=== PATIENT | female | born 1970 | race Caucasian/White ===

== ENCOUNTER 2016-11-27 05:51 | Inpatient (IN) | payer BC ==
[~2016-11-27] VITALS: Ht 165.1 cm; Wt 77.1 kg
[2016-11-27] VITALS (15 sets, daily range): BP systolic 95–114; BP diastolic 54–68
[2016-11-27] MEDS ORDERED: PROZAC10 MG ORAL (06:48)
[2016-11-27] MEDS ORDERED: OMEGA-31000 M1 PO (06:50)
[2016-11-27] MEDS ORDERED: [UNRECOGNIZED DRUG - OTHER] PO (06:50)
[2016-11-27] MEDS ORDERED: Ropivacaine 5mg/ml Vial 20ml INJ ONE (06:58)
[2016-11-27] MEDS ORDERED: Duramorph PF 5mg/10ml amp ONE (06:58)
[2016-11-27] MEDS ORDERED: Zemuron 50mg/5ml Inj IV ONE (07:30)
[2016-11-27] MEDS ORDERED: Midazolam 2mg/2ml Inj ONE (07:30)
[2016-11-27] MEDS ORDERED: Sterile Water Irrig 1000ml IRRIG ONE (07:30)
[2016-11-27] MEDS ORDERED: Neostigmine 1mg/ml 10ml Inj ONE (07:30)
[2016-11-27] MEDS ORDERED: NS 55ml IV ONE (07:30)
[2016-11-27] MEDS ORDERED: Glycopyrrolate 0.2mg/ml 1ml Vial ONE (07:30)
[2016-11-27] MEDS ORDERED: Propofol 10mg/ml 100ml btl IV ONE (07:30)
[2016-11-27] MEDS ORDERED: Propofol 10mg/ml 20ml IV ONE (07:30)
[2016-11-27] MEDS ORDERED: fentaNYL 100 mcg/2 mL IV ONE (07:30)
[2016-11-27] MEDS ORDERED: Ketorolac 30mg Inj ONE (07:30)
[2016-11-27] MEDS ORDERED: LR 1000ml ONE (07:30)
[2016-11-27] MEDS ORDERED: NS Irrig 1000ml ONE (07:30)
[2016-11-27] MEDS ORDERED: Succinylcholine 20mg/ml 10ml vial ONE (07:30)
[2016-11-27] MEDS ORDERED: Clindamycin 600mg 50 ML IV ONE (07:33)
--- NOTE | 2016-11-27 07:45 | Pre-Procedure Note/Attestation ---
Pre-Procedure Note/Attestation Complete Prior to Procedure Planned Procedure: bilateral Procedure Narrative: Supracervical abdominal hysterectomy, Unilateral salpingectomy Indications for Procedure Pre-Operative Diagnosis: Large Symptomatic Uterine Fibroids Attestation I attest that I discussed the nature of the procedure; its benefits; risks and complications; and alternatives (and the risks and benefits of such alternatives ), prior to the procedure, with the patient (or the patient's legal airline security representative). I attest that, if there was a reasonable possibility of needing a blood transfusion, the patient (or the patient's legal airline security representative) was given the [facility] standardized written summary, pursuant to the Todd Wendy Blood Safety Act ([place] Health and Safety Code # 1645, as amended). I attest that I re-evaluated the patient just prior to the surgery and that there has been no change in the patient's H&P, except as documented below:NONE TRISH GEIGER Nov 27, 2016 07:45
[2016-11-27] MEDS ORDERED: LR 1000ml 1,000 ML IVLG SCH (08:41)
--- NOTE | 2016-11-27 08:41 | Anethesia Preoperative Eval ---
Anesthesia Pre-op PMH/ROS General Date of Evaluation: Nov 27, 2016 Time of Evaluation: 07:20 Anesthesiologist: Leticia ASA Score: ASA 2 Mallampati Score Class I : Soft palate, uvula, fauces, pillars visible Class II: Soft palate, uvula, fauces visible Class III: Soft palate, base of uvula visible Class IV: Only hard plate visible Mallampati Classification: Class II Surgeon: Martha Diagnosis: Symptomatic uterine fibroids Surgical Procedure: Supracervical hysterectomy Anesthesia History: none Family History: no anesthesia problems Allergies: Coded Allergies: PENICILLINS (Verified Allergy, Unknown, 11/27/16) SWELLING WHEN GIVEN INJECTION Past Medical History Cardiovascular: Denies: CAD, HTN, ND, arrhythmia, other, valve dz Pulmonary: Reports: MARICRUZ, Denies: COPD, asthma, other Gastrointestinal/Genitourinary: Reports: GERD, Denies: CRI, ESRD, other Neurologic/Psychiatric: Denies: CVA, TIA, dementia, depression/anxiety, other Endocrine: Denies: DM, hypothyroidism, other, steroids HEENT: Denies: RED DEVIL (L), RED DEVIL (R), cataract (L), cataract (R), glaucoma, other Hematology/Immune: Reports: anemia - mild, Denies: DVT, bleeding disorder, other Musculoskeletal/Integumentary: Denies: DDD, DJD, OA, RA, edema, other Other: other - overweight PMH Narrative: as above PSxH Narrative: x2 Anesthesia Pre-op Phys. Exam Physician Exam Last Vital Signs Date Time Temp Pulse Resp B/P Pulse Ox O2 Delivery O2 Flow Rate FiO2 11/27/16 07:10 98.1 67 20 105/56 97 Room Air Constitutional: NAD Neurologic: CN 2-12 intact Cardiovascular: RRR, no M/R/G Respiratory: CTA Gastrointestinal: S/NT/ND Airway Exam Mallampati Score: Class II MO: full Neck: flexible ROM: full Teeth: intact Dentures: no lower, no upper Anesthesia Pre-op A/P Labs see chart Urine Test Test 11/27/16 06:10 Urine HCG, Qualitative Negative Studies Pre-op Studies: EKG - NSR Risk Assessment & Plan Assessment: ASA 2 Plan: GA with ETT Intrathecal Duramorph injection Status Change Before Surgery: No Pre-Antibiotics Drug: Clindamycin 600 mg. Given Within 1 Hr of Incision: Yes Time Given: 08:06 MARS PARKS M.D. Nov 27, 2016 08:41
[2016-11-27] MEDS ORDERED: DiphenhydrAMINE 50mg/ml Inj IVP PRN ×2 (08:45→10:45)
[2016-11-27] MEDS ORDERED: Metoclopramide 10mg/2ml Inj IVP PRN (08:45)
[2016-11-27] MEDS ORDERED: Hydromorphone 0.5mg/0.5ml inj IVP PRN (08:45)
[2016-11-27] MEDS ORDERED: Meperidine 25mg/ml Inj IV PRN (08:45)
[2016-11-27] MEDS ORDERED: Midazolam 2mg/2ml Inj IVP PRN (08:45)
[2016-11-27] MEDS ORDERED: Ketorolac 30mg Inj IV PRN (08:45)
[2016-11-27] MEDS ORDERED: Surgicel 4in x 8in TOPIC ONE (09:03)
--- NOTE | 2016-11-27 10:28 | Brief Operative Note ---
Immediate Post Operative Note Operative Note Pre-op Diagnosis: Large Symptomatic Uterine Fibroids Procedure: Supracervical Hysterectomy, Left Salpingectomy Post-op Diagnosis: Large Uterine Fibroids, Possible extensive adenomyosis Post-op Diagnosis: same as pre-op plus Surgeon: Trish Geiger MD Manager Agency: Ilda Botello MD Anesthesiologist: Nisreen Kelly MD Anesthesia: general Specimen: yes - Uterus, Uterine fibroid, Left Tube Complications: none Condition: stable Fluids: LR @ 125 ml/ hr Estimated Blood Loss: volume Drains: none Implant(s) used?: No TRISH GEIGER Nov 27, 2016 10:28
--- NOTE | 2016-11-27 10:33 | Immediate Post-Op Evaluation ---
Immediate Post-Op Evalulation Immediate Post-Op Evalulation Procedure: Supracervical hysterectomy Date of Evaluation: Nov 27, 2016 Time of Evaluation: 10:32 IV Fluids: 1600 Blood Products: none Estimated Blood Loss: 100 Urinary Output: 150 Blood Pressure Systolic: 109 Blood Pressure Diastolic: 62 Pulse Rate: 92 Respiratory Rate: 20 O2 Sat by Pulse Oximetry: 99 Temperature (Fahrenheit): 97.5 Pain Score (1-10): 2 Nausea: No Vomiting: No Complications none Patient Status: reacts, patent, extubated, none Hydration Status: adequate MARS PARKS M.D. Nov 27, 2016 10:33
[2016-11-27] MEDS ORDERED: Zolpidem 5mg tab ORAL PRN (10:45)
[2016-11-27] MEDS ORDERED: HYDROmorphone 1mg/ml Carpuject IVP PRN (10:45)
--- NOTE | 2016-11-27 13:52 | 48 Hour Post Anesthesia Eval ---
Post Anesthesia Evaluation Procedure: Supracervical hysterectomy Date of Evaluation: Nov 27, 2016 Time of Evaluation: 13:50 Blood Pressure Systolic: 95 0: 54 Pulse Rate: 84 Respiratory Rate: 20 Temperature (Fahrenheit): 97.6 O2 Sat by Pulse Oximetry: 94 Airway: patent Nausea: No Vomiting: No Pain Intensity: 3 Hydration Status: adequate Cardiopulmonary Status: Stable Mental Status/LOC: patient returned to baseline Follow-up Care/Observations: 0 Post-Anesthesia Complications: 0 Follow-up care needed: N/A Chapincito Barksdale MD Nov 27, 2016 13:51
[2016-11-27] MEDS: D5 1/2NS w/KCl 20mEq 1,000 ML IV SCH ×2 (13:56→20:57)
[2016-11-27] MEDS: Norco 5mg/325mg tab ORAL PRN (19:50)
--- NOTE | 2016-11-27 23:28 | Operative Note - Dictated ---
DATE OF OPERATION: 11/27/2016 PREOPERATIVE DIAGNOSIS: Large uterine fibroid with very heavy uterine bleeding. POSTOPERATIVE DIAGNOSIS: Large uterine fibroid with very heavy uterine bleeding plus probable extensive adenomyosis. SURGEON: Ramy Thomas M.D. COAT CHECK ATTENDANT: Ilda Botello M.D. PROCEDURE PERFORMED: Supracervical hysterectomy and left salpingectomy. ANESTHESIA: General endotracheal. ANESTHESIOLOGIST: Hunter Kelly M.D. PROCEDURE IN DETAIL: After all the appropriate consents were signed. The patient was brought to the operating room, placed on the table in supine position. General endotracheal anesthesia was induced without complication. The patient was then placed in a dorsal lithotomy position and a Skelton catheter was placed and then the patient was placed back in the supine position. The patient was draped in the usual fashion and the procedure began with Pfannenstiel incision, which was made in the area of the previous section. The procedure then continued with going through the fascia and the fascial incision was extended bilaterally. The rectus muscle was then reflected away from the fascia both inferiorly and superiorly. The muscle was spotted in the midline and the peritoneum was entered sharply. At this time, the uterus was visualized. The uterus itself appeared to be very soft, but extremely broad and large. There appeared to be a 3 cm subserosal fibroid on the right fundal area. All the other fibroid appeared to be within the uterus, however, the main bulk of the uterus was due to very soft probably adenomyotic tissue. The procedure was then continued with externalizing the uterus through the incision as it was very difficult to view the round ligament due to the width of the uterus. Once the uterus was externalized, the bladder flap was developed because of the previous bladder adhesion, which was tacked up to the top of the uterus. The round ligaments were now identified. They were clamped, cut, and suture ligated bilaterally. The bladder flap was continued to be developed bilaterally. The right uterine vessels were now identified and after some skeletonization the vessels were clamped, cut and suture ligated. The same was performed on the left side after the infundibulopelvic ligament was clamped, cut, and suture ligated. At this time, the attention was turned to the left ovary and tube. The tube was elevated and removed and completely excised away from the ovary. The procedure continued with clamping and cutting along the cervix to get additional uterine and cervical vasculature. Once this was completed, the uterus was completely removed away from the cervix and brought off the field. The cervix was fully visualized and the cervical canal was excised using a coring technique. At this time, the cervical stump was oversewn with a running 0 Vicryl suture. The pelvis was now evaluated for hemostasis. There were multiple bleeders along the muscle layer and placed along the pedicles bilaterally. A complete hemostasis was achieved and the pelvis was irrigated with normal saline. Once again, the hemostasis was evaluated after the irrigation and it was found to be complete. The incision was now closed by closing the peritoneum first followed by the rectus muscle. The fascia was closed using 0 Vicryl suture bilaterally. The subcutaneous tissue was closed using plain suture and in a running fashion and the skin was closed using stainless steel maynor. Ramy Thomas M.D. DR: RAMOS JOB#: [id number] CC:
[2016-11-28] VITALS: BP 100/47
[2016-11-28] MEDS: Norco 5mg/325mg tab ORAL PRN ×3 (01:52→12:43)
[2016-11-28 04:31] VITALS: BP 98/59
[2016-11-28] MEDS: D5 1/2NS w/KCl 20mEq 1,000 ML IV SCH ×3 (05:46→22:24)
[2016-11-28 07:49] LABS: EOSINOPHILS % (AUTO) 0.7 % (0.0-3.0); MEAN CORPUSCULAR HEMOGLOBIN 28.6 PG (27.0-31.0); MEAN CORPUSCULAR HGB CONC 32.6 G/DL (32.0-36.0); MEAN CORPUSCULAR VOLUME 88 FL (80-99); MEAN PLATELET VOLUME 8.5 FL (6.5-10.1); MONOCYTES % (AUTO) 9.6 % (1.0-10.0); NEUTROPHILS % (AUTO) 55.8 % (45.0-75.0); PLATELET COUNT 218 K/UL (150-450); RED BLOOD COUNT 4.28 M/UL (4.20-5.40); RED CELL DISTRIBUTION WIDTH 13.4 % (11.6-14.8)
[2016-11-28 08:00] VITALS: BP 97/57
[2016-11-28 08:18] LABS: ANION GAP 12 (5-15); CARBON DIOXIDE 26 mEQ/L (20-30); CHLORIDE 101 mEQ/L (98-107); CREATININE 0.6 mg/dL (0.5-0.9); GLOMERULAR FILTRATION RATE > 60 mL/min (>60); HEMOLYSIS 6; MAGNESIUM 1.8 mg/dL (1.7-2.5); PHOSPHORUS 2.2 mg/dL (2.5-4.8); POTASSIUM 3.5 mEQ/L (3.4-4.9); SODIUM 139 mEQ/L (135-145)
[2016-11-28 12:00] VITALS: BP 104/64
[2016-11-28 16:00] VITALS: BP 114/64
--- NOTE | 2016-11-28 17:30 | General Progress Note ---
Progress Note Progress Note POD#1 s/p Supracervical Hysterectomy and Left Salpingectomy Afebrile, normotensive Ambulating, norma liquids, now starting with regular diet Skelton out - urinating POS BM Dressing removed, incision dry, clean Will increase ambulation Shower tomorrow Anticipate d/c to home on Wednesday TRISH GEIGER Nov 28, 2016 17:30
[2016-11-28] MEDS: Ketorolac 30mg Inj IV SCH ×2 (17:52→23:48)
[2016-11-28 20:00] VITALS: BP 115/57
[2016-11-28] MEDS: Docusate 100mg cap ORAL SCH (20:51)
[2016-11-29 00:37] VITALS: BP 104/54
[2016-11-29 04:00] VITALS: BP 101/70
[2016-11-29] MEDS: Ketorolac 30mg Inj IV SCH (05:13)
[2016-11-29] MEDS: D5 1/2NS w/KCl 20mEq 1,000 ML IV SCH (05:13)
[2016-11-29 08:00] VITALS: BP 109/59
[2016-11-29] MEDS: Docusate 100mg cap ORAL SCH ×2 (08:55→18:57)
[2016-11-29 12:44] VITALS: BP 115/56
[2016-11-29 16:19] VITALS: BP 111/63
[2016-11-29 20:15] VITALS: BP 117/67
[2016-11-30 05:00] VITALS: BP 121/65
[2016-11-30 08:20] VITALS: BP 107/65
--- NOTE | 2016-11-30 08:48 | Discharge Summary ---
Discharge Summary Hospital Course Date of Admission Nov 27, 2016 at 05:51 Date of Discharge 11/30/2016 Admitting Diagnosis Large symptomatic Uterine Fibroid Reason for Hospitalization: Supracervical Hysterectomy, Left Salpingectomy BEREKET Isaacs is a 46 year old female who was admitted on Nov 27, 2016 at 05:51 for Uterine Fibroids Consultations NONE Procedures Supracervical Hysterectomy, Left Salpingectomy Hospital Course Uncomplicated, Ambulated within 24 postop, tolerating Regular Diet on POD #1, afebrile Discharge Condition Upon Discharge: stable Discharge Disposition Patient was discharged to HOME Discharge Diagnoses: (1) Uterine fibroid TRISH GEIGER Nov 30, 2016 08:48
[2016-11-30] MEDS: Docusate 100mg cap ORAL SCH (09:00)
== END 2016-11-30 10:05 | disposition home or self-care (01) | DRG 743 ==
LOC: SDSOVERFLO 05:51 → 3E 12:48
PROC: 0UT60ZZ Resection of Left Fallopian Tube, Open Approach (ICD-10-PCS; principal; 2016-11-27 07:30)
PROC: 0UT90ZZ Resection of Uterus, Open Approach (ICD-10-PCS; principal; 2016-11-27 07:30)
DX: D25.9 Leiomyoma of uterus, unspecified (principal); G47.33 Obstructive sleep apnea (adult) (pediatric); N80.0 Endometriosis of uterus; Z88.0 Allergy status to penicillin; K21.9 Gastro-esophageal reflux disease without esophagitis
CPT/HCPCS: 36415; 80048; 81025; 83735; 84100; 85025; 86850; 86900; 86901; 87081; 94003; 94150; J2250; J2405; J2710; S0077